=== PATIENT | female | born 1975 | race Caucasian/White ===

== ENCOUNTER 2019-02-17 06:15 | Day surgery (SDC) | payer OTHER ==
[~2019-02-17] VITALS: Ht 172.7 cm; Wt 99.8 kg
[2019-02-17 07:43] LABS: HCG,QUAL RESULT NEGATIVE (NEGATIVE)
[2019-02-17] MEDS ORDERED: MIDAZOLAM HCL 5 MG/ML VIAL (VERSED) IV ONE (12:55)
[2019-02-17] MEDS ORDERED: KETOROLAC TROMETHAMINE 30 MG VIAL ONE (12:55)
[2019-02-17] MEDS ORDERED: SEVOFLURANE 15 MIN GAS INH ONE (12:55)
[2019-02-17] MEDS ORDERED: PROPOFOL 200MG/ 20ML VIAL (DIPRIVAN) IV ONE (12:55)
[2019-02-17] MEDS ORDERED: LR 1,000 ML IV.SOLN IV ONE (12:55)
[2019-02-17] MEDS ORDERED: LR 1,000 ML IV SCH (12:59)
[2019-02-17] MEDS ORDERED: MORPHINE 4 MG/ML INJ. SYRINGE IVP PRN ×3 (13:00)
[2019-02-17] MEDS ORDERED: METOCLOPRAMIDE HCL 10 MG/2 ML VIAL IVP PRN (13:00)
[2019-02-17 17:09] VITALS: BP_SYST 118
== END 2019-02-17 17:00 | disposition home or self-care (01) ==
LOC: SDS 06:15 → SMU 06:15 → SDS 17:00
PROVIDERS: ATTEND Obstetrics & Gynecology
DX: N92.0 Excessive and frequent menstruation with regular cycle (principal); J45.909 Unspecified asthma, uncomplicated; E66.01 Morbid (severe) obesity due to excess calories; J45.901 Unspecified asthma with (acute) exacerbation; K21.9 Gastro-esophageal reflux disease without esophagitis; G47.30 Sleep apnea, unspecified; G62.9 Polyneuropathy, unspecified; M19.90 Unspecified osteoarthritis, unspecified site; G43.909 Migraine, unspecified, not intractable, without status migrainosus; F31.9 Bipolar disorder, unspecified; D64.9 Anemia, unspecified; Z79.899 Other long term (current) drug therapy
CPT/HCPCS: 58563; 71046; 82962; 84703; 93005; J1885; J2250; J2704; J7120